=== PATIENT | female | born 1990 | race Two or more races ===

== ENCOUNTER → 2018-07-24 | Emergency (ER) | payer BC ==
[~2018-07-24] VITALS: Ht 165.1 cm; Wt 61.2 kg
[~2018-07-24] MED LIST: TYLENOL EXTRA500 MG ORAL
[2018-07-24 14:30] VITALS: BP 106/64
[2018-07-24 15:06] LABS: BASOPHILS % (AUTO) 1.2 % (0.0-2.0); EOSINOPHILS % (AUTO) 3.4 % (0.0-3.0); HEMATOCRIT 44.9 % (37.0-47.0); LYMPHOCYTES % (AUTO) 25.3 % (20.0-45.0); MEAN CORPUSCULAR VOLUME 85 FL (80-99); MONOCYTES % (AUTO) 4.9 % (1.0-10.0); NEUTROPHILS % (AUTO) 65.2 % (45.0-75.0); PLATELET COUNT 138 K/UL (150-450); RED BLOOD COUNT 5.27 M/UL (4.20-5.40); RED CELL DISTRIBUTION WIDTH 13.5 % (11.6-14.8); WHITE BLOOD COUNT 10.6 K/UL (4.8-10.8)
[2018-07-24 15:37] LABS: ANION GAP 9 mmol/L (5-15); BLOOD UREA NITROGEN 12 mg/dL (7-18); CALCIUM 9.5 MG/DL (8.5-10.1); CARBON DIOXIDE 25 MMOL/L (21-32); CHLORIDE 106 MMOL/L (98-107); CREATININE 0.7 MG/DL (0.55-1.30); POTASSIUM 4.5 MMOL/L (3.5-5.1); SODIUM 140 MMOL/L (136-145)
[2018-07-24 15:41] LABS: ALANINE AMINOTRANSFERASE 36 U/L (12-78); ALBUMIN 3.8 G/DL (3.4-5.0); ALBUMIN/GLOBULIN RATIO 0.8 (1.0-2.7); ALKALINE PHOSPHATASE 104 U/L (46-116); ASPARTATE AMINO TRANSFERASE 44 U/L (15-37); BILIRUBIN,TOTAL 0.5 MG/DL (0.2-1.0)
--- NOTE | 2018-07-24 16:19 | Diagnostic Imaging Report ---
Indication: Pelvic pain, pelvic bleeding, patient, pelvic cramping Technique: Transabdominal and transvaginal images. Doppler interrogation of the ovaries Comparison: none Findings: Uterus measures 9 cm length by 5 cm AP. Within the endometrium, there is a gestational sac. Eleva-rump length is 4 mm, corresponding to an assessment gestational age of 6 weeks one day. Small hypoechoic area adjacent to the gestational sac likely represents a small area of subchorionic hemorrhage. This measures 11 x 4 mm. No myometrial abnormality. The right ovary measures 3.4 cm in length. It demonstrates a 2.2 cm cyst with irregular margins, probably a partially collapsed corpus luteum. The left ovary measures 3.1 cm in length. No adnexal mass demonstrated. Normal ovarian blood flow is demonstrated on Doppler interrogation. No free cul-de-sac fluid visualized. Impression: 6 week one day, by crown-rump length measurement, single live intrauterine Small subchorionic hemorrhage demonstrated Partially collapsed right ovarian corpus luteum noted
--- NOTE | 2018-07-24 17:01 | Emergency Room Report ---
History of Present Illness General Chief Complaint: Abdominal Pain Source: Patient Present Illness HPI 27-year-old female presents to the emergency department complaining of 8 out of 10 in severity cramping in addition to 3 out of 10 in severity dull headache during first trimester . Patient reports that she just recently found out she was and she also maturely DC oral antibiotics for which she was taking for cellulitis. 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 Patient reports some nausea denies vomiting however she does report several episodes of loose stools 1 week. Patient estimates about 2 loose stools per day. Reports urinary frequency denies urgency or hematuria. Patient denies vaginal bleeding or vaginal discharge. She is . Denies fevers or chills. She reports a previous cellulitic symptoms have resolved. Denies CP, Palpitations, LOC, AMS, dizziness , Changes in Vision, Sensation, paresthesias, or a sudden severe headache. Allergies: Coded Allergies: No Known Allergies (Unverified , 07/24/18) Patient History Past Medical History: see triage record Past Surgical History: none Pertinent Family History: none Last Menstrual Period: 7 weeks Now: Yes Reviewed Nursing Documentation: PMH: Agreed; PSxH: Agreed Nursing Documentation-PMH Past Medical History: No Stated History Review of Systems All Other Systems: negative except mentioned in HPI Physical Exam Vital Signs Date Time Temp Pulse Resp B/P (MAP) Pulse Ox O2 Delivery O2 Flow Rate FiO2 07/24/18 14:18 98.1 105 18 106/64 99 Room Air Sp02 EP Interpretation: reviewed, normal General Appearance: no apparent distress, alert, GCS 15, non-toxic Head: normocephalic, atraumatic Eyes: bilateral eye normal inspection, bilateral eye PERRL ENT: hearing grossly normal, normal voice Neck: full range of motion Respiratory: lungs clear, normal breath sounds, speaking full sentences Cardiovascular #1: regular rate, rhythm Gastrointestinal: normal bowel sounds, non tender, soft Genitourinary: no CVA tenderness Musculoskeletal: back normal, gait/station normal, normal range of motion, non- tender Neurologic: alert, oriented x3, responsive, motor strength/tone normal, sensory intact, normal gait, speech normal, grossly normal Psychiatric: judgement/insight normal Skin: normal color, no rash, warm/dry, well hydrated Lymphatic: no adenopathy Medical Decision Making PA Attestation Dr. Ng is my supervising Physician whom patient management has been discussed with. Diagnostic Impression: Primary Impression: Ovarian cyst Qualified Codes: N83.201 - Unspecified ovarian cyst, right side Additional Impressions: Early stage of Subchorionic hemorrhage in first trimester Qualified Codes: O41.8X11 - Other specified disorders of amniotic fluid and membranes, first trimester, fetus 1; O46.8X1 - Other antepartum hemorrhage, first trimester Threatened miscarriage in early ER Course 27-year-old female presents to the emergency department complaining of 8 out of 10 in severity cramping in addition to 3 out of 10 in severity dull headache during first trimester . Patient reports that she just recently found out she was and she also maturely DC oral antibiotics for which she was taking for cellulitis. 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 Patient reports some nausea denies vomiting however she does report several episodes of loose stools 1 week. Patient estimates about 2 loose stools per day. Reports urinary frequency denies urgency or hematuria. Patient denies vaginal bleeding or vaginal discharge. She is . Denies fevers or chills. She reports a previous cellulitic symptoms have resolved. Denies CP, Palpitations, LOC, AMS, dizziness , Changes in Vision, Sensation, paresthesias, or a sudden severe headache. Ddx considered but are not limited to: Fibroid, ectopic , Fibroid, Spontaneous ,GE, colitis, UTI just to name a few. Vital signs: Pt is tachycardic , pt. is afebrile H&PE are most consistent with: mild dehydration . no evidence of acute abdomen at this time. ORDERS: -CBC :unremarkable -CMP: unremarkable other than mildly elevated AST -Lipase : WNL -Urine hcg- Positive -serum Hcg Quant: [id number] - Blood/RH type and screen- see attached labs -Pelvic US complete- normal intrauterine estimated at 6 weeks gestation. right ovarian cyst 2mm with some free fluid. ED INTERVENTIONS: --PT Declined IV FLUIDS -I do not identify an emergent condition at this time. With current presentation , pt. is stable for close outpatient follow up and conservative treatment. D/ w pt. to return promptly to ED with worsening or new symptoms.- Pt. verbalizes' understanding and agreement with proposed treatment plan. DISCHARGE: At this time pt. is stable for d/c to home. Will provide printed patient care instructions, and any necessary prescriptions. Care plan and follow up instructions have been discussed with the patient prior to discharge. Labs Test 07/24/18 14:50 White Blood Count 10.6 K/UL (4.8-10.8) Red Blood Count 5.27 M/UL (4.20-5.40) Hemoglobin 15.0 G/DL (12.0-16.0) Hematocrit 44.9 % (37.0-47.0) Mean Corpuscular Volume 85 FL (80-99) Mean Corpuscular Hemoglobin 28.4 PG (27.0-31.0) Mean Corpuscular Hemoglobin Concent 33.4 G/DL (32.0-36.0) Red Cell Distribution Width 13.5 % (11.6-14.8) Platelet Count 138 K/UL (150-450) Mean Platelet Volume 9.0 FL (6.5-10.1) Neutrophils (%) (Auto) 65.2 % (45.0-75.0) Lymphocytes (%) (Auto) 25.3 % (20.0-45.0) Monocytes (%) (Auto) 4.9 % (1.0-10.0) Eosinophils (%) (Auto) 3.4 % (0.0-3.0) Basophils (%) (Auto) 1.2 % (0.0-2.0) Sodium Level 140 MMOL/L (136-145) Potassium Level 4.5 MMOL/L (3.5-5.1) Chloride Level 106 MMOL/L (98-107) Carbon Dioxide Level 25 MMOL/L (21-32) Anion Gap 9 mmol/L (5-15) Blood Urea Nitrogen 12 mg/dL (7-18) Creatinine 0.7 MG/DL (0.55-1.30) Estimat Glomerular Filtration Rate > 60 mL/min (>60) Glucose Level 96 MG/DL (74-106) Calcium Level 9.5 MG/DL (8.5-10.1) Total Bilirubin 0.5 MG/DL (0.2-1.0) Aspartate Amino Transf (AST/SGOT) 44 U/L (15-37) Alanine Aminotransferase (ALT/SGPT) 36 U/L (12-78) Alkaline Phosphatase 104 U/L (46-116) Total Protein 8.3 G/DL (6.4-8.2) Albumin 3.8 G/DL (3.4-5.0) Globulin 4.5 g/dL Albumin/Globulin Ratio 0.8 (1.0-2.7) Lipase 73 U/L (73-393) Human Chorionic Gonadotropin, Quant 95655 mIU/mL (1-6) CT/MRI/US Diagnostic Results CT/MRI/US Diagnostic Results : Imaging Test Ordered: OB US Impression "Impression: 6 week one day, by crown-rump length measurement, single live intrauterine Small subchorionic hemorrhage demonstrated Partially collapsed right ovarian corpus luteum noted" Per official radiology report- Please see report for specific details. Last Vital Signs Date Time Temp Pulse Resp B/P (MAP) Pulse Ox O2 Delivery O2 Flow Rate FiO2 07/24/18 14:30 98.1 86 18 106/64 99 Room Air Disposition: HOME, SELF-CARE Condition: Stable Scripts Acetaminophen* (TYLENOL EXTRA STRENGTH*) 500 Mg Tablet 500 MG ORAL Q6H, #20 TAB 0 Refills Prov: Amee Alegre 07/24/18 Referrals: NOT CHOSEN IPA/MD,REFERRING (PCP) Patient Instructions: Ovarian Cyst, Oxiz-mp-Pbof, Subchorionic Hematoma Additional Instructions: Take medications as directed. Follow up with a OBGYN within 2 days, even if your symptoms have resolved. Return sooner to ED if new symptoms occur, or current symptoms become worse. - Please note that this Emergency Department Report was dictated using [employer] service manager technology software, occasionally this can lead to erroneous entry secondary to interpretation by the dictation equipment. Amee Alegre Jul 24, 2018 17:01
== END | disposition home or self-care (01) ==
LOC: EMR 14:50
DX: O34.81 Maternal care for other abnormalities of pelvic organs, first trimester (principal); N83.11 Corpus luteum cyst of right ovary; O20.9 Hemorrhage in early pregnancy, unspecified; Z3A.01 Less than 8 weeks gestation of pregnancy
CPT/HCPCS: 36415; 76801; 76830; 80053; 83690; 84702; 85025; 96360; 99284